=== PATIENT | male | born 1980 | race Caucasian/White ===

== ENCOUNTER 2017-09-11 09:43 | Emergency (ER) | payer MEDICAID ==
[2017-09-11 10:52] VITALS: BP 149/97
== END 2017-09-11 10:52 | disposition home or self-care (01) ==
LOC: ED 09:43
DX: S81.831A Puncture wound without foreign body, right lower leg, initial encounter (principal); W22.8XXA Striking against or struck by other objects, initial encounter; Y93.89 Activity, other specified; Y99.8 Other external cause status; Y92.89 Other specified places as the place of occurrence of the external cause
CPT/HCPCS: 90715